=== PATIENT | male | born 1930 | race Caucasian/White ===

== ENCOUNTER 2019-01-31 15:40 | Inpatient (IN) ==
[2019-01-31] MEDS ORDERED: 0.9 % SODIUM CHLORIDE 1,000 ML IV ONE (16:11)
[2019-01-31] MEDS ORDERED: PIPERACILLIN SODIUM/TAZOBACTAM 3.375 GM in DEXTROSE 5% IN WATER 50 ML IV SCH (16:15)
--- NOTE | 2019-01-31 17:00 | Cat Scan Report ---
CLINICAL INFORMATION: Pneumonia COMPARISON: Previous chest x-ray dated 01/26/2018 TECHNIQUE: Axial noncontrast enhanced images through the chest. Sagittally and coronally reformatted images. MIP reformatted images. FINDINGS: Elevated right hemidiaphragm. This is unchanged since 01/26/2018. Mild bilateral lower lobe pulmonary parenchymal density most consistent with atelectasis. Mild pneumonia is possible. No focal parenchymal consolidation. There is no discrete pulmonary parenchymal mass. There is no bronchiectasis. There is no honeycombing or significant reticular abnormality. No pathologic hilar or mediastinal lymphadenopathy. No axillary adenopathy. There is no pleural fluid. There is no pericardial fluid. There is extensive coronary artery calcification. Main pulmonary artery and right pulmonary artery are dilated. Pulmonary arterial hypertension is likely. No thoracic compression fractures. No lytic lesions. Sternum and ribs are negative. Incidental note is made of severe degenerative disease in the glenohumeral joint bilaterally IMPRESSION: 1. Chronic elevation of the right hemidiaphragm 2. Bilateral lower lobe pulmonary parenchymal density most consistent with atelectasis. Mild pneumonia is possible 3. Severe coronary artery calcification 4. Dilated main pulmonary artery and right pulmonary artery suggests pulmonary arterial hypertension The exam was performed using radiation dose optimization techniques including, but not limited to, automated exposure control, adjustment of the mA and/or kV according to patient size and use of iterative reconstruction technique. Interpreted and Authenticated by: Live Clarke 01/31/19
[2019-01-31 17:02] LABS: proBNP 246.3 pg/ml (0-450)
[2019-01-31 17:04] LABS: Appearance,Urine CLEAR; Bacteria,Urine 0 /hpf (0); Bilirubin,Urine NEG (NEG); Color,Urine YELLOW; Glucose,Urine (UA) NEGATIVE (NEG); Leukocyte Esterase,Urine NEG /uL (NEG); Mucus,Urine FEW /hpf (0); Protein,Urine NEG (NEG); Specific Gravity,Urine 1.011 (1.000-1.035); Urine Blood NEG mg/dL (<0.03); Urine Hyaline Cast 11 /lpf (0-2); Urine RBC < 1 /hpf (0-1); Urine Squamous Epithelial Cell 0 /hpf (0-4); Urine Transitional Epi Cells < 1 /hpf (0-2); Urine WBC 1 /hpf (0-4); Urobilinogen,Urine NEG (NEG)
--- NOTE | 2019-01-31 17:10 | Emergency Department Note ---
SOB HPI - General Chief Complaint: Shortness of Breath/Dyspnea Stated Complaint: shortness of breath, known PNA Time Seen by Provider: 01/31/19 15:54 Source: patient Mode of arrival: wheelchair Limitations: no limitations - History of Present Illness 88-year-old male with a 4 to 5-day history of illness and fever at home. Question of pneumonia with increased trouble breathing and wheezing. He went to [facility] first where they did work-up with laboratory and a chest x-ray and sent him here. He is not on oxygen at home but he does take CPAP for obstructive sleep apnea. He is now requiring oxygen 3 L via nasal cannula. He is very shortness of breath and has dyspnea on exertion. Laboratory from [facility] shows a white count 11.5 hemoglobin 11.8 platelets 125. Chemistries show sodium of 141 potassium 4.7 chloride of 101 bicarb 30.4 creatinine 1.5 and BUN of 25. His blood sugar was 305. Chest x-ray from [facility] showed pleural scarring and chronically elevated right hemidiaphragm. No specific infiltrate is noted - Related Data Previous Rx's Medication Instructions Recorded levothyroxine 137 mcg capsule 137 mcg PO QDAY #30 cap 08/01/15 atenolol 50 mg tablet 50 mg PO BID #60 tab 10/08/15 metformin 1,000 mg tablet 1,000 mg PO BID #60 tab 11/09/15 etodolac 400 mg tablet 400 mg PO BID #60 tab 02/04/16 potassium chloride ER 10 mEq 10 meq PO QDAY #30 cap 03/10/16 capsule,extended release albuterol sulfate HFA 90 1 puff INHALATION Q6H #8.5 g 05/14/16 mcg/actuation aerosol inhaler Albuterol Sulfate [Ventolin] 2 puff INH Q4HP PRN #1 inhaler 01/26/18 Fluticasone Hfa 220Mcg [Flovent 2 puff INH BID #1 inhaler 01/26/18 Hfa 220Mcg] Allergies Allergy/AdvReac Type Severity Reaction Status Date / Time cephalexin [From Keflex] Allergy Unknown Unknown Verified 01/31/19 15:43 Adhesive tape Allergy Unknown Unknown Uncoded 04/09/15 16:05 Review of Systems All systems ED: reviewed and negative except as stated. Past Medical History - Past Medical History Attestation: Yes: The following information was validated with the patient. 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 Essential tremor. Diabetic peripheral neuropathy.). Denies: asthma, CAD (coronary artery disease), COPD, CVA, GERD, myocardial infarction, TIA Surgical history ED: Reports: orthopedic, other (Repair of rotator cuff.), other (Excision of squama cell cancer, shoulder.) - Social History smoking status: Former smoker Alcohol use: Reports: None, Occasionally Drug use: Reports: none. Denies: marijuana Physical Exam Obese male with some respiratory distress requiring oxygen. Normocephalic atraumatic. Conjunctive are clear sclerae white and icteric. No nasal discharge or congestion. Oropharynx with dry buccal mucosa. Posterior pharynx clear. Neck is supple without lymphadenopathy thyromegaly or carotid bruit. Heart is regular rate and rhythm no murmur appreciated. Lungs are basically clear to auscultation bilaterally but body habitus limits exam. He does have an end expiratory wheeze. I do not hear any rales. Abdomen is soft nontender nondistended. We did look at his buttocks area because he was complaining of a cyst and we needed to make sure there was no other source of infection. He does have a healing ulcer on his right buttock. It does not appear infected-at this time it is simply mildly erythematous. He is wearing adult diapers. Bilateral lower extremities with chronic bilateral edema +1. Gross tremor with intention- he has a history of an essential tremor. Limitations: no limitations Course Vital Signs Temperature 99.5 F H 01/31/19 15:40 Pulse Rate 72 01/31/19 15:40 Respiratory Rate 26 H 01/31/19 15:40 Blood Pressure 152/60 01/31/19 15:40 Pulse Oximetry (%) 98 01/31/19 15:40 Temperature 99.5 F H 01/31/19 15:40 Pulse Rate 77 01/31/19 18:31 Respiratory Rate 15 01/31/19 18:31 Blood Pressure 133/123 01/31/19 18:31 Pulse Oximetry (%) 96 01/31/19 18:31 Shortness of Breath/Dyspnea - Lab Data Lab results reviewed: Yes I reviewed the patient's lab results. Lab Results 01/31/19 01/31/19 01/31/19 Range/Units 15:50 15:50 15:50 VBG Lactic Acid 2.3 H (0.5-2.0) mmol/L Magnesium 1.9 (1.6-2.5) mg/dL NT-Pro-B Natriuret Pep 246.3 (0-450) pg/ml Procalcitonin < 0.05 (<0.10) ng/mL Urine Color Urine Appearance Urine pH (5.0-9.0) Ur Specific [place] (1.000-1.035) Urine Protein (NEG) mg/dL Urine Glucose (UA) (NEG) mg/dL Urine Ketones (NEG) mg/dL Urine Occult Blood (<0.03) mg/dL Urine Nitrate (NEG) Urine Bilirubin (NEG) mg/dL Urine Urobilinogen (NEG) mg/dL Ur Leukocyte Esterase (NEG) /uL Urine RBC (0-1) /hpf Urine WBC (0-4) /hpf Ur Squamous Epith Cells (0-4) /hpf Ur Transition Epith Cell (0-2) /hpf Urine Bacteria (0) /hpf Hyaline Casts (0-2) /lpf Urine Mucus (0) /hpf Ur Culture Indicated? 01/31/19 Range/Units 16:10 VBG Lactic Acid (0.5-2.0) mmol/L Magnesium (1.6-2.5) mg/dL NT-Pro-B Natriuret Pep (0-450) pg/ml Procalcitonin (<0.10) ng/mL Urine Color Yellow Urine Appearance Clear Urine pH 5.0 (5.0-9.0) Ur Specific [place] 1.011 (1.000-1.035) Urine Protein Neg (NEG) mg/dL Urine Glucose (UA) Negative (NEG) mg/dL Urine Ketones Neg (NEG) mg/dL Urine Occult Blood Neg (<0.03) mg/dL Urine Nitrate Neg (NEG) Urine Bilirubin Neg (NEG) mg/dL Urine Urobilinogen Neg (NEG) mg/dL Ur Leukocyte Esterase Neg (NEG) /uL Urine RBC < 1 (0-1) /hpf Urine WBC 1 (0-4) /hpf Ur Squamous Epith Cells 0 (0-4) /hpf Ur Transition Epith Cell < 1 (0-2) /hpf Urine Bacteria 0 (0) /hpf Hyaline Casts 11 H (0-2) /lpf Urine Mucus Few (0) /hpf Ur Culture Indicated? No see [facility] labs above Arterial blood gas shows pH 7.38 PCO2 52 PO2 of 86 on 3 L - Radiology Data Radiology results reviewed: Yes I reviewed the patient's radiology results. CT of the chest without contrast shows possible bilateral lower lobe pneumonia mild versus atelectasis - EKG Data EKG attestation: Yes I reviewed and interpreted this EKG. EKG results narrative: EKG shows a rate of 75 long OR right bundle branch block and a left anterior fascicular block. Compared with 01/26/2018 there is no significant change Disposition Pt seen by [employer]INE[employer] HELPER/PA only: No Clinical Impression: Community acquired pneumonia Qualifiers: Laterality: unspecified laterality Qualified Code(s): J18.9 - Pneumonia, unspecified organism Asthma with exacerbation Qualifiers: Asthma severity: unspecified severity Asthma persistence: unspecified Qualified Code(s): J45.901 - Unspecified asthma with (acute) exacerbation Summary: After initial evaluation for the laboratories ordered as well as CT scan. Suspect pneumonia versus bronchitis plus or minus asthma/COPD. Get blood cultures start antibiotics with Zosyn He does have an elevated lactic acid and mild leukocytosis along with elevated temperature. However CT is equivocal on atelectasis versus pneumonia. He did require DuoNeb breathing treatment however for wheezing. We will give low-dose Solu-Medrol as he is diabetic and has elevated blood sugars I discussed the case with Dr. Langston, hospitalist, who agreed to accept the patient for further care and evaluation in the hospital. Recommended that I add Levaquin Disposition: Xfer As Inpt ([facility]) Condition: Fair Referrals: Sveta Meng ARNP [Primary Care Provider] -
[2019-01-31] MEDS ORDERED: IPRATROPIUM/ALBUTEROL 3 ML AMPUL.NEB NEB ONE ×2 (17:25→19:11)
[2019-01-31] MEDS ORDERED: LEVOFLOXACIN 500 MG/100 ML BAG IV ONE (17:39)
[2019-01-31] MEDS ORDERED: methylPREDNISolone SOD SUCC 40 MG/ML VIAL IV ONE (17:40)
--- NOTE | 2019-01-31 17:43 | Internal Med History&Physical ---
Medical - H&P: [facility] Patient information: Note initiated : 01/31/19 at 5:43 pm Service Date, if different from initiated Date: [] Patient: Soham Mendenhall 88 y/o M admitted on for shortness of breath, known PNA. Chief Complaint: [] Chief complaint: cough and sob History of present illness: Mr. Mendenhall is a 88 year old M very pleasant gentleman with a known history of DM type 2/CAD/hypertension/chronic kidney disease and sleep apnea who presents to the ER with worsening symptoms of shortness of breath. Patient was evaluated [facility] with above symptoms. However his symptoms fail to improve and patient became progressively short of breath increasing productive sputum. Endorses to sick contact including his is currently employed [employer]. He has not been able to function or perform activities of daily living in the last 48 hours. Initial workup in the ER was consistent with hypoxia with sats in mid 70s. CT scan revealed chest infiltrates consistent with pneumonia. Patient was started on antibiotic coverage and hospitalist service was consulted. Aside evaluation patient is alert oriented. He is markedly short of breath. Unable to talk in full sentences. He is currently on CPAP. He denies recent changes in medications, V cane, bloody stool, shaking chills or sweats. He does endorse to low-grade fever. He denies smoking or exposure to inhalants Review of systems 10 point review systems was performed and is negative except for as above Medical - H&P: PMH Medical history: Obstructive sleep apnea DM type II Hypertension Chronic disease Gout Degenerative joint disease Peripheral neuropathy Essential tremor History of DVT Surgical history: Rotator cuff repair Squamous Cell cancer shoulder excision Pertinent family history: Nonrelevant Advanced age Social history: Nonsmoker no alcohol Lives at home present jail home Medical - H&P: Meds Home Medications Medication Instructions Recorded Confirmed Type levothyroxine 137 mcg capsule 137 mcg PO QDAY #30 cap 08/01/15 Rx atenolol 50 mg tablet 50 mg PO BID #60 tab 10/08/15 Rx metformin 1,000 mg tablet 1,000 mg PO BID #60 tab 11/09/15 Rx etodolac 400 mg tablet 400 mg PO BID #60 tab 02/04/16 Rx potassium chloride ER 10 mEq 10 meq PO QDAY #30 cap 03/10/16 Rx capsule,extended release albuterol sulfate HFA 90 1 puff INHALATION Q6H #8.5 g 05/14/16 Rx mcg/actuation aerosol inhaler Albuterol Sulfate [Ventolin] 2 puff INH Q4HP PRN #1 inhaler 01/26/18 Rx Fluticasone Hfa 220Mcg [Flovent 2 puff INH BID #1 inhaler 01/26/18 Rx Hfa 220Mcg] Allergies Allergy/AdvReac Type Severity Reaction Status Date / Time cephalexin [From Keflex] Allergy Unknown Unknown Verified 01/31/19 15:43 Adhesive tape Allergy Unknown Unknown Uncoded 04/09/15 16:05 Medical - H&P: Exam - Constitutional Vitals: Temp Pulse Resp BP Pulse Ox 99.5 F H 81 20 143/89 88 L 01/31/19 15:40 01/31/19 17:30 01/31/19 17:30 01/31/19 17:12 01/31/19 17:12 General appearance: moderate distress (shortness of breath), morbidly obese Exam: Patient alert , labored, fatigue and distressed Head normocephalic Oral cavity dry No eardischarge No scleral icterus Neck no lymphadenopathy S1 and S2 regular rhythm no murmur Diminished breath sounds bases Abdomen soft nontender Right lower extremity lymphedema pitting, left lower extremity no joint swelling/lymphedema or cyanosis Skin no suspicious lesion Psych alert cooperative Neurologic nonfocal Medical - H&P: Reslt - Labs Labs: Urine 01/31/19 Range/Units 16:10 Urine Color Yellow Urine Appearance Clear Urine pH 5.0 (5.0-9.0) Ur Specific [place] 1.011 (1.000-1.035) Urine Protein Neg (NEG) mg/dL Urine Glucose (UA) Negative (NEG) mg/dL Medical - H&P: A/P (1) Community acquired pneumonia Current visit: Yes Status: Acute * Community-acquired pneumonia-broad antibiotic coverage for empiric pathogens. Await sputum culture/strep pneumo/mycoplasma serology * Hypoxic respiratory failure- continue supplemental oxygen * Severe dyspnea-continue bronchodilators * DM type II continue basal prandial insulin * History of hypertension continue atenolol * Hypothyroidism continue thyroxine * Full code * Prophylaxis heparin Plan * Antibiotic coverage * Inpatient admission in light of pneumonia severity index > 100 * Pre-existing medical condition management as above * PT OT/nutrition support
[2019-01-31] MEDS ORDERED: LEVOFLOXACIN 750 MG/150 ML BAG IV SCH (18:56)
[2019-01-31] MEDS ORDERED: ACETAMINOPHEN 1,000 MG/100 ML BOTTLE IV PRN (18:56)
[2019-01-31] MEDS ORDERED: POTASSIUM CHLORIDE 20 MEQ PACKET PO PRN (18:56)
[2019-01-31] MEDS ORDERED: guaiFENesin/CODEINE 10 ML UDC PO PRN (18:56)
[2019-01-31] MEDS ORDERED: MAGNESIUM SULFATE 2 GM/50 ML BAG IV PRN (18:56)
[2019-01-31] MEDS ORDERED: ACETAMINOPHEN 325 MG TABLET PO PRN (18:56)
[2019-01-31] MEDS ORDERED: ONDANSETRON 4 MG/2 ML VIAL IV PRN (18:56)
[2019-01-31] MEDS: 0.9 % SODIUM CHLORIDE 1,000 ML IV SCH (18:59)
[2019-01-31] MEDS ORDERED: BUDESONIDE 0.5 MG/2 ML AMPUL.NEB NEB ONE (19:11)
[2019-01-31] MEDS: IPRATROPIUM/ALBUTEROL 3 ML AMPUL.NEB NEB SCH ×2 (20:40→23:17)
[2019-01-31] MEDS: BUDESONIDE 0.5 MG/2 ML AMPUL.NEB NEB SCH (20:40)
[2019-01-31] MEDS ORDERED: DEXTROSE 50% 50 ML VIAL IV PRN (20:43)
[2019-01-31] MEDS ORDERED: DEXTROSE 31 GM ORAL.SUSP PO PRN (20:43)
[2019-01-31] MEDS: HEPARIN 5,000 UNIT/ML VIAL SQ SCH (21:29)
[2019-01-31] MEDS: DOCUSATE SODIUM 100 MG CAPSULE PO SCH (21:29)
[2019-01-31] MEDS: SENNOSIDES/DOCUSATE SODIUM 1 TAB TABLET PO SCH (21:29)
[2019-01-31] MEDS: 0.9 % SODIUM CHLORIDE 10 ML SYRINGE IV SCH (21:31)
[2019-01-31] MEDS: INSULIN LISPRO 1 UNIT/0.01 ML UNIT SQ SCH (21:40)
[2019-01-31] MEDS ORDERED: METOPROLOL TARTRATE 25 MG TABLET PO ONE (23:17)
[2019-01-31] MEDS ORDERED: METOPROLOL TARTRATE 25 MG TABLET ONE (23:21)
[2019-02-01] MEDS: IPRATROPIUM/ALBUTEROL 3 ML AMPUL.NEB NEB SCH ×6 (03:14→22:47)
[2019-02-01] MEDS: 0.9 % SODIUM CHLORIDE 10 ML SYRINGE IV SCH ×3 (05:28→23:11)
[2019-02-01 06:08] LABS: Mean Cell Volume 97.8 fL (80.0-100.0); Mean Corpuscular HGB Conc 32.9 g/dL (31.0-36.0); Platelet Count 118 K/mcL (140-440); RBC 3.46 M/mcL (4.50-5.90); Red Cell Distribution Width 14.6 % (11.5-14.5)
[2019-02-01 06:40] LABS: ALT/SGPT 16 U/l (0-40); Albumin 3.4 gm/dL (3.2-5.2); Albumin/Globulin Ratio 1.1 (1.0-2.3); Alkaline Phosphatase 75 U/L (39-117); Bilirubin,Direct < 0.2 mg/dL (0.0-0.3); Blood Urea Nitrogen 24 mg/dl (8-23); Gamma Glutamyl Transpeptidase 17 U/L (8-61); Uric Acid 7.2 mg/dL (2.5-8.0)
[2019-02-01 06:48] LABS: Band Neutrophils % 2 % (0-10); Lymphocytes % 12 % (15-49); Monocytes % (Manual) 1 % (1-12); Platelet Estimate DECREASED (NORMAL); RBC Morphology ABNORM (NORMAL); Segmented Neutrophils % 85 % (38-78)
[2019-02-01] MEDS ORDERED: LEVOTHYROXINE SODIUM 175 MCG TABLET PO SCH (09:00)
[2019-02-01] MEDS ORDERED: INSULIN GLARGINE, HUMAN 1 UNIT/0.01 ML SQ ONE (09:33)
[2019-02-01] MEDS: INSULIN LISPRO 1 UNIT/0.01 ML UNIT SQ SCH ×4 (09:47→21:37)
[2019-02-01] MEDS: LEVOTHYROXINE 150 MCG TABLET PO SCH (09:48)
[2019-02-01] MEDS: DOCUSATE SODIUM 100 MG CAPSULE PO SCH ×2 (09:49→21:27)
[2019-02-01] MEDS: LOSARTAN 50 MG TABLET PO SCH (09:49)
[2019-02-01] MEDS: FUROSEMIDE 40 MG TABLET PO SCH (09:49)
[2019-02-01] MEDS: ALLOPURINOL 100 MG TABLET PO SCH (09:49)
[2019-02-01] MEDS: METOPROLOL TARTRATE 50 MG TABLET PO SCH (09:49)
[2019-02-01] MEDS: GABAPENTIN 300 MG CAPSULE PO SCH ×4 (09:49→21:20)
[2019-02-01] MEDS: ESCITALOPRAM 10 MG TABLET PO SCH (09:49)
[2019-02-01] MEDS: MULTIVIT,THER IRON,CA,FA & MIN 1 TABLET PO SCH (09:49)
[2019-02-01] MEDS: LEVOTHYROXINE 25 MCG TABLET PO SCH (09:55)
[2019-02-01] MEDS: HEPARIN 5,000 UNIT/ML VIAL SQ SCH ×2 (09:55→21:31)
[2019-02-01] MEDS: LEVOFLOXACIN 750 MG/150 ML BAG IV SCH (09:55)
[2019-02-01] MEDS ORDERED: COLCHICINE 0.6 MG PO SCH (10:00)
[2019-02-01] MEDS: BUDESONIDE 0.5 MG/2 ML AMPUL.NEB NEB SCH ×2 (11:13→19:05)
--- NOTE | 2019-02-01 11:30 | Internal Med Progress Note ---
Medical - PN: Subj Patient information: Note initiated : 02/01/19 at 11:18 am Service Date, if different from initiated Date: [] Patient: Soham Mendenhall 88 y/o M admitted on 01/31/19 for shortness of breath, known PNA. Chief Complaint: [] Interval history: Mr. Mendenhall is a 88 year old M very pleasant gentleman with a known history of DM type 2/CAD/hypertension/chronic kidney disease and sleep apnea who presents to the ER with worsening symptoms of shortness of breath. Patient was [facility] with above symptoms. However his symptoms fail to improve and patient became progressively short of breath increasing productive sputum. Endorses to sick contact including his is currently employed [employer]. He has not been able to function or perform activities of daily living in the last 48 hours. Initial workup in the ER was consistent with hypoxia with sats in mid 70s. CT scan revealed chest infiltrates consistent with pneumonia. Patient was started on antibiotic coverage and hospitalist service was consulted. Aside evaluation patient is alert oriented. He is markedly short of breath. Unable to talk in full sentences. He is currently on CPAP. He denies recent changes in medications, V cane, bloody stool, shaking chills or sweats. He does endorse to low-grade fever. He denies smoking or exposure to inhalants 5/-patient doing well. Now on room air 91% sats. No overnight events. Patient however reluctant to stay any longer. Requesting to be discharged. He is refusing fingersticks and other treatments. Awaiting family. During conversation patient was reasonable and would be willing to stay additional 24 hours if daughter agrees. He says that he does not like to be in the hospital - Constitutional Vitals: Vital Signs Temp Pulse Resp BP Pulse Ox 97.8 F 86 20 187/80 91 02/01/19 07:52 02/01/19 07:52 02/01/19 07:52 02/01/19 07:52 02/01/19 07:52 Period Temp Pulse Resp BP Sys/Silva Pulse Ox Last 24 Hr 97.6 F-99.5 F 71-92 15-26 133-198/57-123 88-100 Intake and Output 01/31/19 02/01/19 02/01/19 21:59 05:59 13:59 Intake Total 1150 Output Total 175 675 Balance 975 -675 Weight 311 lb 8 oz Intake & Output: Intake & Output 01/31/19 02/01/19 02/01/19 21:59 05:59 13:59 Intake Total 1150 Output Total 175 675 Balance 975 -675 Weight 311 lb 8 oz Intake: IV 1150 Sodium Chloride 0.9% 1,000 ml @ 1000 Wide Open IV .Q0M ONE Rx#: [id number] Zosyn 3.375 gm In Dextrose 5% 50 in Water 50 ml @ 100 mls/hr IV ONCE [facility] Rx#:[id number] Output: Void Amount 175 675 Other: Urine Appearance Clear Clear Urine Color Bright Yellow Light Toshia Urine Odor Normal Normal Stool Size Smear # Voids 1 1 # Bowel Movements 0 1 General appearance: no acute distress Exam: Able to talk in full sentences Nonlabored breathing Anxious S1 and S2 regular rhythm Medical - PN: Obj Da - Labs CBC & Chem 7: 02/01/19 04:10 02/01/19 04:10 Labs: Abnormal Lab Results 02/01/19 02/01/19 01/31/19 04:10 04:10 16:10 RBC 3.46 L Hgb 11.1 L Hct 33.8 L RDW 14.6 H Plt Count 118 L Seg Neutrophils % 85 H Lymphocytes % 12 L Platelet Estimate Decreased A RBC Morphology Abnorm A Polychromasia 1+ A VBG Lactic Acid BUN 24 H Creatinine 1.4 H Glucose 347 H Calcium 8.4 L Phosphorus 2.4 L Hyaline Casts 11 H 01/31/19 15:50 RBC Hgb Hct RDW Plt Count Seg Neutrophils % Lymphocytes % Platelet Estimate RBC Morphology Polychromasia VBG Lactic Acid 2.3 H BUN Creatinine Glucose Calcium Phosphorus Hyaline Casts Meds: Medications Acetaminophen (Tylenol) 650 mg PO Q4-6HP PRN PRN Reason: PAIN/FEVER > 101 Albuterol/Ipratropium (Duoneb) 3 ml NEB Q4HRT [facility] Last Admin: 02/01/19 11:13 Dose: 3 ml Documented by: Allopurinol (Zyloprim) 100 mg PO DAILY [facility] Last Admin: 02/01/19 09:49 Dose: 100 mg Documented by: Budesonide (Pulmicort) 0.5 mg NEB Q12 [facility] Last Admin: 02/01/19 11:13 Dose: 0.5 mg Documented by: Dextrose (Dextrose 50%) 0 ml IV UD PRN PRN Reason: Hypoglycemia Diagnostic Test (Pha) (Accu-Chek) 1 each FS ACHS [facility] Last Admin: 02/01/19 08:52 Dose: 1 each Documented by: Docusate Sodium (Colace) 100 mg PO BID [facility] Last Admin: 02/01/19 09:49 Dose: 100 mg Documented by: Escitalopram Oxalate (Lexapro) 15 mg PO DAILY [facility] Last Admin: 02/01/19 09:49 Dose: 15 mg Documented by: Furosemide (Lasix) 40 mg PO DAILY [facility] Last Admin: 02/01/19 09:49 Dose: 40 mg Documented by: Gabapentin (Neurontin) 300 mg PO QID [facility] Last Admin: 02/01/19 09:49 Dose: 300 mg Documented by: Glucose (Insta-Glucose) 15 gm PO PRN PRN PRN Reason: Hypoglycemia Guaifenesin/Codeine Phosphate (Robitussin Ac) 10 ml PO Q4HP PRN PRN Reason: Cough Heparin Sodium (Porcine) (Heparin) 5,000 unit SQ Q12 [facility] Last Admin: 02/01/19 09:55 Dose: 5,000 unit Documented by: Magnesium Sulfate (Magnesium Sulfate) 2 gm in 50 mls @ 50 mls/hr IV UD PRN PRN Reason: MG = or < 1.7 Sodium Chloride (Sodium Chloride 0.9%) 1,000 mls @ 50 mls/hr IV .Q20H [facility] Stop: 02/03/19 06:55 Last Admin: 01/31/19 18:59 Dose: 50 mls/hr Documented by: Acetaminophen (Ofirmev) 1,000 mg in 100 mls @ 200 mls/hr IV Q6HP PRN PRN Reason: PAIN/FEVER > 101 Levofloxacin (Levaquin) 750 mg in 150 mls @ 100 mls/hr IV Q24H [facility]; Protocol Last Admin: 02/01/19 09:55 Dose: 100 mls/hr Documented by: Insulin Glargine (Lantus) 46 unit SQ HS [facility] Insulin Human Lispro (Humalog) 0 unit SQ [facility]; Protocol Last Admin: 02/01/19 09:47 Dose: 4 units Documented by: Iron Carb/Multivit/[place]/Folic Acid (Multivitamin W/Minerals) 1 tab PO DAILY [facility] Last Admin: 02/01/19 09:49 Dose: 1 tab Documented by: Levothyroxine Sodium (Synthroid) 150 mcg PO [facility] Last Admin: 02/01/19 09:48 Dose: 150 mcg Documented by: [facility] Last Admin: 02/01/19 09:55 Dose: 25 mcg Documented by: Losartan Potassium (Cozaar) 50 mg PO DAILY [facility] Last Admin: 02/01/19 09:49 Dose: 50 mg Documented by: Metoprolol Tartrate (Lopressor) 25 mg PO [facility] Metoprolol Tartrate (Lopressor) 50 mg PO DAILY [facility] Last Admin: 02/01/19 09:49 Dose: 50 mg Documented by: Non-Formulary Medication (Colchicine [Colcrys]) 0.6 mg PO Q3D [facility] Ondansetron HCl (Zofran) 4 mg IV Q4-6HP PRN PRN Reason: Nausea And Vomiting Potassium Chloride (Klor-Con) 40 meq PO DAILYP PRN PRN Reason: K+ < 3.5 Potassium Chloride (Kdur) 10 meq PO [facility] Senna/Docusate Sodium (Senna Plus Tablet) 1 tab PO [facility] Last Admin: 01/31/19 21:29 Dose: 1 tab Documented by: Sodium Chloride (Saline Flush) 10 ml IV Q8 [facility] Last Admin: 02/01/19 05:28 Dose: Not Given Documented by: Medical - PN: A/P - Time Spent With Patient Total time spent is greater than 50% in coordination of care (as documented) at patient's floor/unit and/or counseling patient: 25 - 35 minutes (1) Community acquired pneumonia Status: Acute Assessment and plan: * Community-acquired pneumonia-clinical improvement noted on broad antibiotic coverage for empiric pathogens. White count down from 11,003.9 Await sputum culture/strep pneumo/mycoplasma serology * Hypoxic respiratory failure- continue supplemental oxygen * Severe dyspnea-continue bronchodilators * DM type II continue basal prandial insulin. Poorly controlled. Blood sugar 347. Continue basal prandial insulin * Chronic kidney disease creatinine 1.4. Avoid nephrotoxins * History of hypertension continue atenolol * Hypothyroidism continue thyroxine * Full code * Prophylaxis heparin Plan * Continue antibiotics * PT OT/nutrition support * Pre-existing medical condition management as above Current Visit: Yes Medical - PN: Qual - VTE Deep Vein Thrombosis/Pulmonary Embolism Present on Admission: No
[2019-02-01] MEDS ORDERED: COLCHICINE 0.6 MG TABLET PO PRN (11:45)
[2019-02-01] MEDS: 0.9 % SODIUM CHLORIDE 1,000 ML IV SCH (15:26)
[2019-02-01] MEDS ORDERED: METOPROLOL TARTRATE 25 MG TABLET PO SCH (21:00)
[2019-02-01] MEDS ORDERED: INSULIN GLARGINE, HUMAN 1 UNIT/0.01 ML SQ SCH (21:00)
[2019-02-01] MEDS: SENNOSIDES/DOCUSATE SODIUM 1 TAB TABLET PO SCH (21:32)
[2019-02-02] MEDS: IPRATROPIUM/ALBUTEROL 3 ML AMPUL.NEB NEB SCH ×3 (02:57→10:40)
[2019-02-02] MEDS: 0.9 % SODIUM CHLORIDE 10 ML SYRINGE IV SCH (04:50)
[2019-02-02 05:59] LABS: Mean Cell Volume 98.4 fL (80.0-100.0); Platelet Count 111 K/mcL (140-440); RBC 3.28 M/mcL (4.50-5.90)
[2019-02-02 06:26] LABS: ALT/SGPT 15 U/l (0-40); Albumin 3.3 gm/dL (3.2-5.2); Albumin/Globulin Ratio 1.1 (1.0-2.3); Alkaline Phosphatase 68 U/L (39-117); Bilirubin,Direct < 0.2 mg/dL (0.0-0.3); Blood Urea Nitrogen 27 mg/dl (8-23); Gamma Glutamyl Transpeptidase 17 U/L (8-61)
[2019-02-02] MEDS: BUDESONIDE 0.5 MG/2 ML AMPUL.NEB NEB SCH ×2 (06:52→08:16)
[2019-02-02 06:55] LABS: Anisocytosis 1+ (NONE SEEN); Band Neutrophils % 3 % (0-10); Eosinophils % (Manual) 4 % (0-7); Lymphocytes % 27 % (15-49); Monocytes % (Manual) 8 % (1-12); Platelet Estimate DECREASED (NORMAL); RBC Morphology ABNORM (NORMAL); Segmented Neutrophils % 58 % (38-78)
[2019-02-02] MEDS: LEVOTHYROXINE 25 MCG TABLET PO SCH (07:48)
[2019-02-02] MEDS: LEVOTHYROXINE 150 MCG TABLET PO SCH (07:48)
[2019-02-02] MEDS ORDERED: POTASSIUM CHLORIDE 10 MEQ TABLET PO SCH (08:00)
[2019-02-02] MEDS: INSULIN LISPRO 1 UNIT/0.01 ML UNIT SQ SCH ×2 (08:01→12:36)
[2019-02-02] MEDS: HEPARIN 5,000 UNIT/ML VIAL SQ SCH (08:50)
[2019-02-02] MEDS: LEVOFLOXACIN 750 MG/150 ML BAG IV SCH (08:51)
[2019-02-02] MEDS: ESCITALOPRAM 10 MG TABLET PO SCH (08:51)
[2019-02-02] MEDS: GABAPENTIN 300 MG CAPSULE PO SCH (08:51)
[2019-02-02] MEDS: METOPROLOL TARTRATE 50 MG TABLET PO SCH (08:52)
[2019-02-02] MEDS: DOCUSATE SODIUM 100 MG CAPSULE PO SCH (08:52)
[2019-02-02] MEDS: LOSARTAN 50 MG TABLET PO SCH (08:52)
[2019-02-02] MEDS: MULTIVIT,THER IRON,CA,FA & MIN 1 TABLET PO SCH (08:52)
[2019-02-02] MEDS: FUROSEMIDE 40 MG TABLET PO SCH (08:52)
[2019-02-02] MEDS: ALLOPURINOL 100 MG TABLET PO SCH (08:52)
--- NOTE | 2019-02-02 10:27 | Discharge Summary ---
Medical - DS: Prov Patient information: Note initiated : 02/02/19 at 10:25 am Service Date, if different from initiated Date: [] Patient: Soham Mendenhall 88 y/o M admitted on 01/31/19 for shortness of breath, known PNA. Chief Complaint: [] Date of admission: 01/31/19 18:49 Discharge date: 02/02/19 Primary care physician: Sveta Meng Consults: 01/31/19 Consult to Physician [CONS] Stat Comment: Consulting Provider: Sebastien Jackson Reason For Exam: Physician to Consult Medical - DS: Meds - Discharge Medications Prescriptions: Levofloxacin [Levaquin] 750 mg PO Q48 #3 tab Active and Home Medications: Home Medications potassium chloride ER 10 mEq capsule,extended release 10 meq PO QDAY #30 cap 03/10/16 [Rx Confirmed 01/31/19 Last Taken Unknown] Allopurinol [Zyloprim] 100 mg PO DAILY 01/31/19 [History Confirmed 01/31/19 Last Taken Unknown] Colchicine [Colcrys] 0.6 mg PO Q3D 01/31/19 [History Confirmed 01/31/19 Last Taken Unknown] Escitalopram Oxalate [Lexapro] 15 mg PO DAILY 01/31/19 [History Confirmed 01/31/19 Last Taken Unknown] Furosemide [Lasix] 40 mg PO DAILY 01/31/19 [History Confirmed 01/31/19 Last Taken Unknown] Gabapentin [Neurontin] 300 mg PO QID 01/31/19 [History Confirmed 01/31/19 Last Taken Unknown] Ibuprofen [Ibu] 800 mg PO DAILY 01/31/19 [History Confirmed 01/31/19 Last Taken Unknown] Insulin Glargine, Human [Lantus] 46 units SQ HS 01/31/19 [History Confirmed 01/31/19 Last Taken Unknown] Levothyroxine Sodium [Synthroid] 175 mcg PO DAILY 01/31/19 [History Confirmed 01/31/19 Last Taken Unknown] Losartan Potassium 50 mg PO DAILY 01/31/19 [History Confirmed 01/31/19 Last Taken Unknown] Metoprolol Tartrate [Lopressor] 25 mg PO HS 01/31/19 [History Confirmed 01/31/19 Last Taken Unknown] Metoprolol Tartrate [Lopressor] 50 mg PO DAILY 01/31/19 [History Confirmed 01/31/19 Last Taken Unknown] Levofloxacin [Levaquin] 750 mg PO Q48 #3 tab 02/02/19 [Rx Last Taken Unknown] Medical - DS: Hosp Hospital course: Discharge diagnosis * Community-acquired pneumonia-clinical improvement noted on Levaquin. White count normalized. Continue additional 5 days antibiotic. Cultures negative so far. 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 * Chronic kidney disease creatinine 1.4 baseline. Recommend outpatient PCP/nephrology follow-up * History of hypertension continue atenolol * Hypothyroidism continue thyroxine Brief hospital course Mr. Mendenhall is a 88 year old M very pleasant gentleman with a known history of DM type 2/CAD/hypertension/chronic kidney disease and sleep apnea who presents to the ER with worsening symptoms of shortness of breath. Patient was evaluated [facility] with above symptoms. However his symptoms fail to improve and patient became progressively short of breath increasing productive sputum. Endorses to sick contact including his is currently employed [employer]. He has not been able to function or perform activities of daily living in the last 48 hours. Initial workup in the ER was consistent with hypoxia with sats in mid 70s. CT scan revealed chest infiltrates consistent with pneumonia. Patient was started on antibiotic coverage and hospitalist service was consulted. Aside evaluation patient is alert oriented. He is markedly short of breath. Unable to talk in full sentences. He is currently on CPAP. He denies recent changes in medications, V cane, bloody stool, shaking chills or sweats. He does endorse to low-grade fever. He denies smoking or exposure to inhalants 02/01-patient doing well. Now on room air 91% sats. No overnight events. Patient however reluctant to stay any longer. Requesting to be discharged. He is refusing fingersticks and other treatments. Awaiting family. During conversation patient was reasonable and would be willing to stay additional 24 hours if daughter agrees. He says that he does not like to be in the hospital 02/02-patient doing a lot better. Currently in room air. Responded well to Levaquin. We'll be discharging an additional 5 days of Levaquin to complete pneumonia treatment. Improved shortness of breath. Multiple family members at bedside. Ongoing physical therapy. Case management recommends SNF transfer. Continue post auscultation rehabilitation/follow-up with PCP as outpatient. Discharge diagnosis: . - Time Spent with Patient Total time spent providing and/or coordinating discharge services: Greater than 30 minutes Medical - DS: Exam - Constitutional Vitals: Vital Signs Temp Pulse Pulse Resp BP Pulse Ox 02/02/19 08:00 97.4 F 73 12 177/81 90 02/02/19 07:02 57 L 18 95 02/02/19 07:01 57 L 18 02/02/19 04:00 97.8 F 63 12 155/81 97 02/02/19 02:57 55 L 20 02/02/19 00:00 98.6 F 62 16 158/75 95 02/01/19 23:38 72 20 02/01/19 20:00 98.7 F 72 16 116/61 93 02/01/19 19:05 81 20 02/01/19 16:00 98.1 F 88 20 180/84 92 02/01/19 14:55 80 20 02/01/19 12:00 97.9 F 84 20 170/82 90 02/01/19 11:24 62 18 Intake and Output 02/01/19 02/02/19 02/02/19 21:59 05:59 13:59 Intake Total 1390 400 Output Total 1050 400 Balance 340 400 -400 Intake: IV 1150 100 Sodium Chloride 0.9% 1,000 ml @ 1000 50 mls/hr IV .Q20H [facility] Rx#: [id number] Oral 240 300 Output: Void Amount 1050 400 Other: Meal Dinner Breakfast Percent of Meal Consumed 100% 100% Feeding Ability Independent Urine Appearance Clear Clear Urine Color Dark Yellow Bright Yellow Urine Odor Normal Stool Size Smear Small Stool Color Brown Stool Consistency Soft Soft # Voids 1 1 # Bowel Movements 1 Weight 310 lb 8 oz Medical - DS: Data Labs on day of discharge: Labs from last 24 hours 02/02/19 02/02/19 04:10 04:10 WBC 8.0 RBC 3.28 L Hgb 10.6 L Hct 32.2 L MCV 98.4 MCH 32.5 MCHC 33.0 RDW 15.0 H Plt Count 111 L MPV 9.3 Total Counted 100 Seg Neutrophils % 58 Band Neutrophils % 3 Lymphocytes % 27 Monocytes % (Manual) 8 Eosinophils % (Manual) 4 Platelet Estimate Decreased A RBC Morphology Abnorm A Anisocytosis 1+ A Sodium 140 Potassium 3.9 Chloride 106 Carbon Dioxide 28 Anion Gap 6.0 L BUN 27 H Creatinine 1.5 H GFR Calculation 41 Glucose 170 H Uric Acid 7.0 Calcium 8.4 L Phosphorus 3.1 Magnesium 2.0 Total Bilirubin 0.5 Direct Bilirubin < 0.2 GGT 17 AST 25 ALT 15 Alkaline Phosphatase 68 Lactate Dehydrogenase 175 Total Protein 6.2 Albumin 3.3 Globulin 2.9 Albumin/Globulin Ratio 1.1 Triglycerides 105 Preliminary micro results at discharge 01/31/19 16:25 Blood Culture - Preliminary Blood 01/31/19 15:50 Blood Culture - Preliminary Blood Medical - DS: A/P - Patient/Caregiver Discharge Instructions Activity: as per physical therapy, increase activity as tolerated Diet: Renal/Consistent Carbs Additional Instructions: Follow-up PCP in 5 days Follow-up nephrology in 2 weeks for evaluation of chronic kidney disease I recommend PCP physician to check CBC BMP UA as a posthospital follow-up and Chest x-ray in 1 week. Antibiotics for additional 5 days Levaquin Continue aggressive bowel regimen to prevent constipation Continue fall precautions Continue aggressive PT evaluation and treatment All meals on chair sitting upright at 90 degrees to prevent aspiration Return to ER if worsening fever chills shortness of breath, diarrhea, bleeding Review risk and side effect profile of medications including antibiotics. Side effect may include mild to severe reaction including rash, diarrhea, cdiff and even which can be prevented by close follow-up with PCP and monitoring for side effects Refrain from smoking and alcohol Continue diet and activity as advised Discussed importance of medication adherence Please review medication list with patient prior to discharge Please schedule follow-up with PCP/Providers prior to discharge and provide printouts Prescriptions: Levofloxacin [Levaquin] 750 mg PO Q48 #3 tab - Problem Maintenance (1) Community acquired pneumonia Status: Acute Qualifiers: Laterality: unspecified laterality Qualified Code(s): J18.9 - Pneumonia, unspecified organism - Follow up Plan Follow up with: Sveta Meng ARNP [Primary Care Provider] - 02/08/19 3:15 pm James Covarrubias MD [Physician] - 02/24/19 1:45 pm Disposition: Xfer Assisted Living Facility Prognosis: Fair Rehab Potential: Fair I certify that the patient requires SNF services: No Overall status at discharge: patient is progressing back to baseline Medical - DS: Qual - VTE Deep Vein Thrombosis/Pulmonary Embolism Present on Admission: No
== END 2019-02-02 14:00 | DRG 193 ==
LOC: ED 15:40 → MEDSUR 18:49
PROVIDERS: ADMIT Internal Medicine; ATTEND Internal Medicine